=== PATIENT | male | born 1950 | race Two or more races ===

== ENCOUNTER 2018-07-05 14:02 | Emergency (ER) | payer MEDICAID ==
[~2018-07-05] VITALS: Ht 172.7 cm; Wt 96.6 kg
[~2018-07-05 14:02] MED LIST: BAY PO; FOL1 PO; GENOO OU; LIPI10 PO; THI100 PO; TIMOPTIC IN OCUD0.5% OU; ZES10 PO; [UNRECOGNIZED DRUG - CODE] OU
[2018-07-05 14:23] VITALS: Ht 172.7 cm; Wt 96.6 kg
[2018-07-05 15:02] LABS: BASOPHIL % 0.3 % (0-2); PLATELET COUNT 216 x10^3mcL (130-400); RED CELL DISTRIBUTION WIDTH 13.2 % (11.5-14.5)
[2018-07-05 15:05] LABS: CALCIUM 8.9 mg/dL (8.5-10.1); CARBON DIOXIDE 20.9 mmol/L (21-32); CHLORIDE SERUM 93 mmol/L (98-107); CREATININE SERUM 0.9 mg/dL (0.7-1.3); GFR1 > 60 mL/min; GLUCOSE SERUM 106 mg/dL (74-106); POTASSIUM SERUM 3.8 mmol/L (3.5-5.1); SODIUM SERUM 130 mmol/L (136-145)
[2018-07-05 15:10] LABS: ALBUMIN 3.8 g/dL (3.4-5.0); ALKALINE PHOSPHATASE 106 U/L (46-116); ALT/SGPT 18 U/L (16-63); AST/SGOT 29 U/L (15-37)
[2018-07-05 15:12] LABS: TOTAL PROTEIN, SERUM 8.3 g/dL (6.4-8.2)
[2018-07-05 15:35] VITALS: BP 159/97
== END 2018-07-05 15:35 | disposition home or self-care (01) ==
LOC: ED 14:02
PROVIDERS: Emergency Medicine
DX: F10.239 Alcohol dependence with withdrawal, unspecified (principal); F41.9 Anxiety disorder, unspecified; I10 Essential (primary) hypertension
CPT/HCPCS: J2060; J7030